=== PATIENT | male | born 1985 | race Caucasian/White ===

== ENCOUNTER 2020-03-14 12:17 | Emergency (ER) | payer SELFPAY ==
[~2020-03-14] VITALS: Ht 175.3 cm; Wt 82.1 kg
[2020-03-14 13:01] VITALS: BP_SYST 144
--- NOTE | 2020-03-14 13:08 | NUR ---
Patient triaged and placed in waiting room. VSS and patient appears in no acute distress at this time. Awaiting available bed, and MD notified of need for MSE.
--- NOTE | 2020-03-14 17:06 | NUR ---
Patient left without being seen.
== END 2020-03-14 19:28 | disposition left against medical advice (07) ==
LOC: SED 12:17
DX: R04.2 Hemoptysis (principal); R63.0 Anorexia; Z53.21 Procedure and treatment not carried out due to patient leaving prior to being seen by health care provider